=== PATIENT | male | born 1990 | race Two or more races ===

== ENCOUNTER 2016-04-27 16:51 | Emergency (ER) | payer SELFPAY ==
[2016-04-27] MEDS ORDERED: FAMOTIDINE 20 MG TABLET ONE (17:25)
[2016-04-27] MEDS ORDERED: DIPHENHYDRAMINE HCL 25 MG CAPSULE ONE (17:25)
== END 2016-04-27 17:34 | disposition home or self-care (01) ==
LOC: ED 16:51
DX: T39.311A Poisoning by propionic acid derivatives, accidental (unintentional), initial encounter (principal); L29.9 Pruritus, unspecified; Y92.009 Unspecified place in unspecified non-institutional (private) residence as the place of occurrence of the external cause
CPT/HCPCS: 99283 ×2; A9270 ×2